=== PATIENT | female | born 2000 | race Caucasian/White ===

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

== ENCOUNTER 2021-01-16 14:07 | Emergency (ER) | payer BC, SELFPAY ==
[2021-01-16 14:40] VITALS: BP 111/71; PULSE 104; RESP 16; TEMP 36.9; O2SAT 100
[2021-01-16 14:54] LABS: Glucose Point of Care 76 mg/dl (65-105)
[2021-01-16 15:01] LABS: Basophils Percent Auto 0.2 % (0.2-1.2); Eosinophils Absolute Auto 0.3 K/mm3 (0-0.3); Eosinophils Percent Auto 2.3 % (0-4.4); Hematocrit 45.9 % (37.0-47.0); Hemoglobin 14.8 g/dL (12.0-15.0); Immature Granulocyte Absolute 0.02 K/mm3 (0.00-0.031); Immature Granulocyte Percent A 0.2 % (0-0.5); Lymphocytes Absolute Auto 1.15 K/mm3 (0.9-3.2); Lymphocytes Percent Auto 9.9 % (18.3-44.2); Mean Corpuscular HGB Conc 32.2 g/dl (32-36); Mean Corpuscular Hemoglobin 27.2 pg (26-34); Mean Corpuscular Volume 84.2 fl (80-100); Mean Platelet Volume 10.3 fl (7.4-10.4); Monocytes Absolute Auto 0.6 K/mm3 (0.1-0.6); Monocytes Percent Auto 5.2 % (2.6-8.5); Neutrophils Absolute Auto 9.5 K/mm3 (1.3-6.7); Neutrophils Percent Auto 82.2 % (45.5-73.1); Platelet Count Result 283 k/mm3 (150-375); Red Blood Count 5.45 M/mm3 (4.2-5.4); Red Cell Distribution Width 12.5 % (11.5-14.5); White Blood Count 11.6 K/mm3 (4.5-10.0)
[2021-01-16 15:16] LABS: Alanine Aminotransferase 17 U/L (4-35); Albumin Level 4.7 g/dL (3.7-5.6); Alkaline Phosphatase 71 U/L (45-116); Anion Gap 9 mmol/L (8-16); Aspartate Amino Transferase 29 U/L (14-36); Bilirubin,Total 0.7 mg/dL (0.2-1.3); Blood Urea Nitrogen 11 mg/dL (8-21); Carbon Dioxide 21 mmol/L (22-30); Chloride 109 mmol/L (98-107); Estimated CRCL calculation 96 ml/min; Estimated Glomerular Filt Rate > 60; Glucose 81 mg/dL (65-110); Lipase 25 U/L (23-300); Potassium 5.4 mmol/L (3.4-5.0); Sodium 139 mmol/L (134-143)
[2021-01-16 16:14] VITALS: BP 105/55; PULSE 90; RESP 17; O2SAT 100
[2021-01-16 17:51] LABS: Add Urine Microscopic? YES; Appearance Urine Cloudy (Clear); Bacteria Urine Trace /hpf; Bilirubin Urine Negative (Negative); Blood Urine 1+ (Negative); Color Urine Yellow (Yellow); Glucose Urine UA Negative (Negative); Ketones Urine Trace mg/dL (Negative); Leukocyte Esterase Ur 2+ LEU/UL (Negative); Mucus Urine Moderate /lpf; Nitrate Urine Negative (Negative); Protein Urine Negative (Negative); RBC Urine 0-2 /hpf (0-2); Specific Grav Ur 1.024 (1.001-1.035); Squamous Epithelial Cell Urine Many /hpf (Few); Urobilinogen Urine Negative mg/dL (<2.0); WBC Urine 16-20 /hpf
[2021-01-16] MEDS: ONDANSETRON INJ 4 MG/2 ML VIAL IV PUSH (18:01)
--- NOTE | 2021-01-16 18:06 | ED.NAVMDI ---
HPI - Nausea/Vomiting/Diarrhea General Chief complaint: Nausea/Vomiting/Diarrhea Stated complaint: cant keep anything down, diabetic Time Seen by Provider: 01/16/21 16:18 History of Present Illness HPI Narrative: Patient is a 20-year-old female who presents ER with nausea and vomiting diarrhea. Woke up this morning with symptoms. Diarrhea has slowed down but patient remains persistently nauseated. Patient has history of type 1 diabetes. She reports good sugar control. No fevers or chills or sweats. No known sick contacts. Related Data Home Medications Medication Instructions Recorded Confirmed insulin aspart U-100 100 unit/mL 1 sliding scale dose SUB-Q 05/13/19 12/02/20 subcutaneous solution USEASDIRECTD norethindrone 1 mg-ethinyl 1 tablet PO DAILY 10/08/19 12/02/20 estradiol 10 mcg (24)-iron 10 mcg(2) tablet fluticasone propionate 93 1 spray INTRANASAL Q12H 05/25/20 12/02/20 mcg/actuation breath activated aerosol Allergies Allergy/AdvReac Type Severity Reaction Status Date / Time benzoyl peroxide Allergy Mild rash Verified 11/23/20 14:57 Review of Systems Review of Systems: All systems reviewed & are unremarkable except as noted in HPI and below Constitutional: Constitutional: Denies chills, Denies fever(s) and Denies weakness ENT: Denies nasal congestion and Denies sore throat Cardiovascular: Cardiovascular: Denies chest pain, Denies rapid heart rate and Denies radiating jaw, neck or arm pain Respiratory: Respiratory: Denies cough and Denies dyspnea Gastrointestinal: Gastrointestinal: Denies abdominal pain, Reports diarrhea, Reports nausea and Reports vomiting Genitourinary: Genitourinary: Denies nocturia and Denies dysuria [facility] [place] Past Medical History Medical History Airway polyps Anxiety Asthma Bloating BMI 24.0-24.9, adult Diabetes Type 1 Diarrhea Gout History of nasal polyp Inflammatory arthritis Lower abdominal pain Stomach ulcer Ulcerative colitis Wears glasses Surgical History Surgical History History of colonoscopy History of surgery -2013 History of wisdom tooth extraction Family History Family History Mother Asthma Father Psoriasis Hyperlipemia Grandparent Psoriasis Hyperlipemia Hypocholesteremia Grandparent Breast cancer Skin cancer Thyroid cancer Grandparent Family history of malignant neoplasm of breast Sibling PCOS (polycystic ovarian syndrome) Social History Social History Smoking status: Never smoker Second hand tobacco smoke exposure: No Alcohol intake: never Substance use: never Substance use type: does not use Additional occupation/education comments: [employer] Gender identity (if verbalized by the patient): Female Exam Narrative: GENERAL: Well-appearing, well-nourished, and in no acute distress. HEAD: Normocephalic, atraumatic. EYES: PERRL and EOMI. ENT: Mucous membranes moist. CHEST: Clear to auscultation. No respiratory distress. HEART: Regular rate and rhythm. Normal peripheral pulses. ABDOMEN: Soft, nontender, nondistended. EXTREMITIES: Normal range of motion. No edema. SKIN: Warm, dry, no rash. NEURO: Alert and oriented x3. Course Course Emergency Course: Looks well. Hydrated. Tolerating p.o. Discharge home with short course of antibiotics for UTI. Vital Signs Vital signs: Vital Signs Temperature 98.5 F 01/16/21 14:40 Pulse Rate 104 H 01/16/21 14:40 Respiratory Rate 16 01/16/21 14:40 Blood Pressure 111/71 01/16/21 14:40 Pulse Oximetry 100 01/16/21 14:40 Temperature 98.5 F 01/16/21 14:40 Pulse Rate 90 01/16/21 16:14 Respiratory Rate 17 01/16/21 16:14 Blood Pressure 105/55 L 01/16/21 16:14 Pulse Oximetry 10
[2021-01-16 18:55] VITALS: BP 122/76; PULSE 88; RESP 14; O2SAT 99
== END 2021-01-16 18:56 | disposition home or self-care (01) ==
PROVIDERS: Emergency Provider Emergency Medicine; PCP Family Medicine
DX: K52.9 Noninfective gastroenteritis and colitis, unspecified (principal); N39.0 Urinary tract infection, site not specified; E10.9 Type 1 diabetes mellitus without complications; J45.909 Unspecified asthma, uncomplicated; M10.9 Gout, unspecified; K51.90 Ulcerative colitis, unspecified, without complications; Z79.4 Long term (current) use of insulin
CPT/HCPCS: 36415; 80053; 81001; 82948; 83690; 85025; 87086; 87088; 96374; 99284; J2405

== ENCOUNTER 2021-02-09 14:08 | Emergency (ER) | payer BC, SELFPAY ==
[2021-02-09 14:20] VITALS: BP 122/68; PULSE 88; RESP 16; TEMP 36.9; O2SAT 100
--- NOTE | 2021-02-09 14:33 | ED.ABDPAIN ---
HPI - Abdominal Pain General Chief Complaint: Abdominal Pain Stated Complaint: VOMITING/DIARRHEA/ABD PAIN/NAUSEA Source: patient and RN notes reviewed Limitations: no limitations History of Present Illness HPI narrative: The vaccinated patient, who has IR DM and UC, presents with vomiting and diarrhea. Patient states she has a shorter, 12-hour history of concurrent onset of nausea, vomiting x7 associated with more diarrhea x10. Symptoms are moderate unrelieved with Imodium and Zofran-as sometimes she cannot keep it down. No fever, blood, abdominal tenderness, travel history, sick family [school starts next week], loss of taste/smell, CP, cough, S OB. She has diabetic sensor/implant showing sugars about 140s. Patient and family advised to go to higher level care facility for her liver testing and treatment like blood tests and IV fluids?which they declined repeatedly Related Data Home Medications Medication Instructions Recorded Confirmed insulin aspart U-100 100 unit/mL 1 sliding scale dose SUB-Q 05/13/19 02/07/21 subcutaneous solution USEASDIRECTD norethindrone 1 mg-ethinyl 1 tablet PO DAILY 10/08/19 02/07/21 estradiol 10 mcg (24)-iron 10 mcg(2) tablet fluticasone propionate 93 1 spray INTRANASAL Q12H 05/25/20 02/07/21 mcg/actuation breath activated aerosol Allergies Allergy/AdvReac Type Severity Reaction Status Date / Time benzoyl peroxide Allergy Mild rash Verified 02/07/21 09:07 Review of Systems Review of Systems: General/Constitutional: No weight loss,fever Eyes: N0: Redness,discharge Ears/Nose/Throat: No: Epistaxis,ear discharge Respiratory: Denies: Hemoptysis Gastrointestinal: REPORTS vomiting,no bloody stools Skin: No Lumps, eruption Neurologic: No Focal Weakness,Sz Hematologic: Denies: Petechiae/Purpura Psychiatric: No: Suicida ideationl All Other Systems: Reviewed and Negative [facility] Past Medical History Medical History Airway polyps Anxiety Asthma Bloating BMI 24.0-24.9, adult Diabetes Type 1 Diarrhea Gout History of nasal polyp Inflammatory arthritis Lower abdominal pain Stomach ulcer Ulcerative colitis Wears glasses Surgical History Surgical History History of colonoscopy History of surgery -2013 History of wisdom tooth extraction Family History Family History Mother Asthma Father Psoriasis Hyperlipemia Grandparent Psoriasis Hyperlipemia Hypocholesteremia Grandparent Breast cancer Skin cancer Thyroid cancer Grandparent Family history of malignant neoplasm of breast Sibling PCOS (polycystic ovarian syndrome) Social History Social History Second hand tobacco smoke exposure: No Alcohol intake: never Substance use: never Substance use type: does not use Additional occupation/education comments: [employer] Gender identity (if verbalized by the patient): Female Comments At time of signature, agree with nursing past medical, surgical, social and family history. There is no relevant family history pertinent to the presenting complaint Exam Narrative: General Appearance: nauseated appearing, No distress EYE: PERRLA, Conjunctiva clear Ears: External ear normal Nose: Normal nose Mouth/Throat: Normal appearing, Normal lips Neck: Supple Respiratory: Airway patent, No respiratory distress Cardiovascular: RRR Abdomen: Soft, Non-tender, No massess, No organomegaly (no rebound/ surgical signs), Hyperactive bowel sounds Musculoskeletal: Full ROM Skin: Warm, Dry Neurological: A&O x3, CN II-X intact Psychiatric: Normal mood, Normal affect Course Vital Signs Vital signs: Vital Signs Temperature 98.5 F 02/09/21 14:20 Pulse Rate 88 02/09/21 14:20
[2021-02-09] MEDS: ONDANSETRON HCL ODT 4 MG TABLET PO (14:48)
== END 2021-02-09 15:22 | disposition home or self-care (01) ==
PROVIDERS: Emergency Provider Emergency Medicine; PCP Family Medicine
DX: R11.2 Nausea with vomiting, unspecified (principal); R19.7 Diarrhea, unspecified; Z20.822 Contact with and (suspected) exposure to COVID-19; J45.909 Unspecified asthma, uncomplicated; E10.9 Type 1 diabetes mellitus without complications; M10.9 Gout, unspecified; M06.9 Rheumatoid arthritis, unspecified
CPT/HCPCS: 81003; 87086; 87088; 87426; 99213; A9270; C9803; G0463

== ENCOUNTER 2021-02-09 19:09 | Emergency (ER) | payer BC, SELFPAY ==
[2021-02-09 20:11] VITALS: BP 113/74; PULSE 93; RESP 18; TEMP 37.2; O2SAT 100
[2021-02-09 20:46] LABS: Basophils Percent Auto 0.2 % (0.2-1.2); Eosinophils Absolute Auto 0.3 K/mm3 (0-0.3); Hematocrit 46.7 % (37.0-47.0); Hemoglobin 15.3 g/dL (12.0-15.0); Immature Granulocyte Absolute 0.02 K/mm3 (0.00-0.031); Immature Granulocyte Percent A 0.2 % (0-0.5); Lymphocytes Absolute Auto 0.88 K/mm3 (0.9-3.2); Lymphocytes Percent Auto 10.6 % (18.3-44.2); Mean Corpuscular HGB Conc 32.8 g/dl (32-36); Mean Corpuscular Hemoglobin 27.1 pg (26-34); Mean Corpuscular Volume 82.7 fl (80-100); Monocytes Absolute Auto 0.7 K/mm3 (0.1-0.6); Monocytes Percent Auto 8.9 % (2.6-8.5); Neutrophils Absolute Auto 6.3 K/mm3 (1.3-6.7); Neutrophils Percent Auto 76.1 % (45.5-73.1); Platelet Count Result 298 k/mm3 (150-375); Red Blood Count 5.65 M/mm3 (4.2-5.4); Red Cell Distribution Width 12.3 % (11.5-14.5); White Blood Count 8.3 K/mm3 (4.5-10.0)
[2021-02-09 21:00] LABS: Alanine Aminotransferase 20 U/L (4-35); Albumin Level 4.7 g/dL (3.7-5.6); Alkaline Phosphatase 62 U/L (45-116); Anion Gap 11 mmol/L (8-16); Aspartate Amino Transferase 25 U/L (14-36); Bilirubin,Total 1.1 mg/dL (0.2-1.3); Blood Urea Nitrogen 17 mg/dL (8-21); Calcium 9.8 mg/dL (8.9-10.7); Carbon Dioxide 26 mmol/L (22-30); Chloride 98 mmol/L (98-107); Estimated CRCL calculation 85 ml/min; Estimated Glomerular Filt Rate > 60; Glucose 163 mg/dL (65-110); Lipase 19 U/L (23-300); Potassium 4.6 mmol/L (3.4-5.0); Sodium 135 mmol/L (134-143)
--- NOTE | 2021-02-09 21:20 | PC.NURSE ---
PT amb to intake, states she is leaving, that she is feeling better. Pt alert & oriented x 4. Pt ambulatory out of ED with nl steady gait.
== END 2021-02-09 21:20 | disposition left against medical advice (07) ==
LOC: ANHED 21:36
PROVIDERS: Emergency Provider Emergency Medicine; PCP Family Medicine
DX: R11.2 Nausea with vomiting, unspecified (principal)
CPT/HCPCS: 36415; 80053; 83690; 85025; 99199

== ENCOUNTER 2021-06-28 09:40 | Outpatient (CLI) | payer BC, SELFPAY ==
--- NOTE | ~2021-06-28 | US_ITS ---
EXAMINATION: US abdomen limited EXAM DATE: 06/28/2021 10:42 INDICATION: K51.90 - Ulcerative colitis, unspecified, without complic... TECHNIQUE: Multiple grayscale and Doppler images of the abdomen right upper quadrant were obtained (b y a technologist who performed the scan) and subsequently reviewed. There is no prior study for rosendo parsons. FINDINGS: The pancreatic head and body are normal in appearance. The pancreatic tail is not visualized. The l iver has normal echogenicity and contour. There are no focal liver lesions identified. There is no evidence of intrahepatic biliary duct dilation. Portal venous flow was seen in the hepatopedal, nor mal direction and has normal Doppler waveform. No right-sided hydronephrosis. Common bile duct measures 2 mm, which is normal. The gallbladder wall is normal in thickness, with ex pected amount of distention. No sonographic evidence of pericholecystic fluid. There is no cholelit hiases. Technologist performing exam reports patient did not demonstrate sonographic Sierra's sign. Please note that this sign is less reliable in patients who have received pain medication. IMPRESSION: 1. Unremarkable abdominal ultrasound exam. Reviewed, dictated and finalized at location A. [employer] SAFETY PROFESSIONAL
== END 2021-06-28 09:41 | disposition home or self-care (01) ==
LOC: ANHIMG 09:47
PROVIDERS: PCP Family Medicine; Visit Provider Nurse Practitioner Family
DX: K51.90 Ulcerative colitis, unspecified, without complications (principal)
CPT/HCPCS: 76705

== ENCOUNTER 2022-01-16 00:36 | Day surgery (SDC) | payer BC, SELFPAY ==
[2021-12-29 12:05] VITALS: BMI 25.0
--- NOTE | 2022-01-13 09:47 | SUR.PREOP ---
0948 spoke with patient and patient is taking Sutab for her prep.
[2022-01-16 06:50] VITALS: BMI 25.9
[2022-01-16 06:55] VITALS: BP 128/68; PULSE 68; RESP 17; TEMP 36.6; O2SAT 100
[2022-01-16] MEDS: LACTATED RINGERS 1,000 ML 150 ML IV CONT (07:01)
[2022-01-16 07:08] LABS: Glucose Point of Care 167 mg/dl (65-105)
--- NOTE | 2022-01-16 07:51 | WPDANESEPPF ---
Anes - Initial Pre Proc Eval Procedure: Operation Date: 01/16/22 08:00 Proposed Procedures p Colonoscopy - Duane Cooney MD Date/Time: 01/16/22 07:51 Surgeon: Duane Cooney MD Pre Op Diagnosis: ulcerative colitis Patient Data Age: 21 Gender: F Height: 1.63 m Weight: 68.5 kg Last Vital Signs Temp 97.8 F 01/16/22 06:55 Pulse 68 01/16/22 06:55 Resp 17 01/16/22 06:55 BP 128/68 01/16/22 06:55 Pulse Ox 100 01/16/22 06:55 O2 Del Method Room Air 01/16/22 06:55 Allergies Allergy/AdvReac Type Severity Reaction Status Date / Time benzoyl peroxide Allergy Mild rash Verified 12/29/21 12:04 Home Medications Medication Instructions Recorded Confirmed Type insulin aspart U-100 100 unit/mL 1 sliding scale dose subcut 05/13/19 12/29/21 History subcutaneous solution (Novolog USEASDIRECTD U-100 Insulin aspart) norethindrone 1 mg-ethinyl 1 tablet PO DAILY 10/08/19 12/29/21 History estradiol 10 mcg (24)-iron 10 mcg(2) tablet (Lo Loestrin Fe) mesalamine 1.2 gram tablet,delayed 3.6 g PO DAILY 3 months #270 tabs 10/04/21 12/29/21 Rx release spironolactone 50 mg tablet 50 mg PO DAILY 12/29/21 12/29/21 History Laboratory Tests 01/16/22 07:05 POC Capillary Glucose 167 mg/dl H mg/dl (65-105) Patient hx anesthesia problems: none Family hx anesthesia problems: none Results Review: All pre-operative results and documents have been reviewed as part of the pre-operative evaluation. [facility] Past Medical History Medical History Airway polyps Anxiety Asthma Bloating BMI 24.0-24.9, adult Diabetes Type 1 Diarrhea Gout History of nasal polyp Inflammatory arthritis Lower abdominal pain Stomach ulcer Ulcerative colitis Wears glasses Surgical History Surgical History History of colonoscopy History of surgery Lip-2014 History of wisdom tooth extraction Family History Family History Mother Asthma Father Psoriasis Hyperlipemia Grandparent Psoriasis Hyperlipemia Hypocholesteremia Grandparent Breast cancer Skin cancer Thyroid cancer Grandparent Family history of malignant neoplasm of breast Sibling PCOS (polycystic ovarian syndrome) Gurdeep's disease Social History Social History Second hand tobacco smoke exposure: No Alcohol intake: current Substance use: never Substance use type: does not use Living arrangements: with family Additional occupation/education comments: [employer] Gender identity (if verbalized by the patient): Female Spiritual care concerns: No Anes - Eval Final PreProcedure Day of Procedure 01/16/22 07:51 Patient weight: normal Heart: regular rate and rhythm Lungs: clear to auscultation Airway: Mallampati scale class II Neurological: alert and oriented Last oral intake: >/= 8 hours ASA classification: II Emergent: no Anesthetic plan: proceed Anesthesia type and monitoring: general GIVS and standard monitoring Results Review: All pre-operative results and documents have been reviewed as part of the pre-operative evaluation. Informed Consent: The patient's anesthetic plan and its attendant risks and benefits were discussed with the patient/family/POA. Questions were solicited and answers provided to the satisfaction of the patient/family/POA.
--- NOTE | 2022-01-16 07:54 | PM.HPGS ---
History of Present Illness History of Present Illness Consent: Risks, benefits, and alternatives have been discussed and questions answered. Patient agrees to proceed with procedure. Chief complaint: ulcerative colitis Narrative: Nusrat Mcdowell is a 21 year old female with UC involving all colon diagnosed 2019, doing well on lialda without recent flare up Review of Systems Constitutional: Constitutional: Denies headache(s) and Denies weakness Eyes: Eyes: Denies blurry vision ENT: Reports Normal hearing present, Denies headache(s) and Denies neck pain Cardiovascular: Cardiovascular: Denies chest pain and Denies dyspnea Respiratory: Respiratory: Denies dyspnea Gastrointestinal: Gastrointestinal: Reports no additional gastrointestinal complaints Genitourinary: Genitourinary: Denies dysuria Musculoskeletal: Musculoskeletal: Denies neck pain Integumentary/Breasts: Skin/Breast: Denies dry skin Neurologic: Reports Normal hearing present, Denies headache(s) and Denies weakness Psychiatric: Psychiatric: Denies anxiety Endocrine: Endocrine: Denies change in body appearance Hematologic/Lymphatic: Hematologic/Lymphatic: Denies easy bleeding Allergic/Immunologic: Allergic/Immunologic: Denies urticaria PMFSH Past Medical History Medical History Airway polyps Anxiety Asthma Bloating BMI 24.0-24.9, adult Diabetes Type 1 Diarrhea Gout History of nasal polyp Inflammatory arthritis Lower abdominal pain Stomach ulcer Ulcerative colitis Wears glasses Surgical History Surgical History History of colonoscopy History of surgery -2013 History of wisdom tooth extraction Family History Family History Mother Asthma Father Psoriasis Hyperlipemia Grandparent Psoriasis Hyperlipemia Hypocholesteremia Grandparent Breast cancer Skin cancer Thyroid cancer Grandparent Family history of malignant neoplasm of breast Sibling PCOS (polycystic ovarian syndrome) Gurdeep's disease Social History Social History Second hand tobacco smoke exposure: No Alcohol intake: current Substance use: never Substance use type: does not use Living arrangements: with family Additional occupation/education comments: [employer] Gender identity (if verbalized by the patient): Female Spiritual care concerns: No Meds Home Medications and Allergies Home Medications Medication Instructions Recorded Confirmed Type insulin aspart U-100 100 unit/mL 1 sliding scale dose subcut 05/13/19 12/29/21 History subcutaneous solution (Novolog USEASDIRECTD U-100 Insulin aspart) norethindrone 1 mg-ethinyl 1 tablet PO DAILY 10/08/19 12/29/21 History estradiol 10 mcg (24)-iron 10 mcg(2) tablet (Lo Loestrin Fe) mesalamine 1.2 gram tablet,delayed 3.6 g PO DAILY 3 months #270 tabs 10/04/21 12/29/21 Rx release spironolactone 50 mg tablet 50 mg PO DAILY 12/29/21 12/29/21 History Allergies Allergy/AdvReac Type Severity Reaction Status Date / Time benzoyl peroxide Allergy Mild rash Verified 12/29/21 12:04 Vital Signs Vital Signs - 24 hr 01/16/22 06:55 Temperature 97.8 F Pulse Rate 68 Respiratory Rate 17 Blood Pressure 128/68 Pulse Oximetry 100 Oxygen Delivery Room Air Exam Const: General: comfortable and no acute distress HENMT: General nose exam: Normal nares present Eyes: General: appearance normal, both eyes and all related structures Neck: Neck: no JVD Resp: Auscultation: clear to auscultation bilaterally Cardio: Rate: regular rate Rhythm: regular rhythm GI: Inspection: non-distended GI Palp: Yes Soft to palpation Skin: General skin exam: normal color Neuro: General: gait normal Speech: normal speech Extrem: General: normal t
[2022-01-16 08:13] VITALS: BP 102/66; PULSE 76; RESP 19; O2SAT 99
[2022-01-16 08:23] VITALS: BP 115/71; PULSE 76; RESP 23; O2SAT 100
[2022-01-16 08:24] LABS: Glucose Point of Care 148 mg/dl (65-105)
[2022-01-16 08:33] VITALS: BP 117/74; PULSE 66; RESP 14; O2SAT 100
== END 2022-01-16 08:43 | disposition home or self-care (01) ==
PROVIDERS: PCP Family Medicine; Visit Provider Internal Medicine Gastroenterology
PROC: 0DJD8ZZ Inspection of Lower Intestinal Tract, Via Natural or Artificial Opening Endoscopic (ICD-10-PCS; CPT 45378; principal; 2022-01-16 08:00)
DX: K51.90 Ulcerative colitis, unspecified, without complications (principal); K64.8 Other hemorrhoids; F41.9 Anxiety disorder, unspecified; J45.909 Unspecified asthma, uncomplicated; R14.0 Abdominal distension (gaseous); M10.9 Gout, unspecified; Z79.4 Long term (current) use of insulin
CPT/HCPCS: 45380; 82948; 88305; J2704; J7120